=== PATIENT | female | born 1955 | race Caucasian/White ===

== ENCOUNTER 2020-09-10 18:00 | Inpatient (IN) | payer MEDICARE, OTHER ==
--- NOTE | 2020-09-10 19:00 | CR ---
PROCEDURE INFORMATION: Exam: XR Abdomen Exam date and time: 09/10/2020 6:30 PM Age: 65 years old Clinical indication: Other: Patient complains of constipation TECHNIQUE: Imaging protocol: XR of the abdomen. Views: 2 Views. Upright and supine views. COMPARISON: No relevant prior studies available. FINDINGS: Gastrointestinal tract: Normal. No bowel dilation. Right upper quadrant clips likely due to cholecystectomy. Intraperitoneal space: Normal. No free air. Bones/joints: Unremarkable for age. IMPRESSION: No acute findings.
--- NOTE | 2020-09-10 19:07 | EDM.PDOC ---
ED HPI GENERAL MEDICAL PROBLEM - General Chief Complaint: Gastrointestinal Problem Stated Complaint: CAN'T PASS BOWEL MOVEMENT, HAS DEMENTIA Time Seen by Provider: 09/10/20 19:10 Source of Information: Reports: Patient, Family (Daughter and ), RN, RN Notes Reviewed History Limitations: Reports: Other (Dementia and anxiety) - History of Present Illness INITIAL COMMENTS - FREE TEXT/NARRATIVE: Patient presents to the ED via personal vehicle with daughter for complaints of constipation. The patient's daughter reports the patient has significant anxiety, as well as dementia, at baseline and is a poor historian. The patient's daughter states her mother has been voicing complaints of a decrease in bowel movement frequency over the past several days. She has been given multiple laxatives, fleets enemas, and stool softeners in the past 48 hours. The patient's daughter reports she is experiencing bowel movements, per her father's report, but are concerned the frequency and amount of stool are not satisfactory. The patient denies fever, shaking chills, palpitations, abdominal pain, dysuria, hematuria, melena, or hematochezia. - Related Data Allergies Allergy/AdvReac Type Severity Reaction Status Date / Time wool Allergy itch/rash Verified 09/10/20 22:52 Home Meds: Home Meds Cyanocobalamin (Vitamin B12) [Vitamin B12] 1,000 mcg PO DAILY 09/10/20 [History] Donepezil HCl 10 mg PO DAILY 09/10/20 [History] Memantine HCl 5 mg PO DAILY 09/10/20 [History] amLODIPine [Norvasc] 2.5 mg PO DAILY 09/10/20 [History] hydrOXYzine pamoate [Hydroxyzine Pamoate] 25 mg PO BID PRN 09/10/20 [History] Past Medical History Cardiovascular History: Reports: Hypertension Psychiatric History: Reports: Anxiety, Dementia, Depression Social & Family History - Tobacco Use Tobacco Use Status *Q: Never Tobacco User Second Hand Smoke Exposure: Yes - Caffeine Use Caffeine Use: Reports: Soda - Recreational Drug Use Recreational Drug Use: No ED ROS GENERAL - Review of Systems Review Of Systems: Comprehensive ROS is negative, except as noted in HPI. ED EXAM, GI/ABD - Physical Exam Exam: See Below Exam Limited By: Other (Anxiety) General Appearance: Alert, Anxious, Mild Distress (Due to anxiety) Eyes: Bilateral: Normal Appearance, EOMI Throat/Mouth: Normal Inspection, Normal Voice, No Airway Compromise Head: Atraumatic, Normocephalic Neck: Normal Inspection, Supple, Non-Tender, Full Range of Motion Respiratory/Chest: No Respiratory Distress, Lungs Clear, Normal Breath Sounds, No Accessory Muscle Use, Chest Non-Tender Cardiovascular: Normal Peripheral Pulses, Regular Rate, Rhythm, No Edema, No Gallop, No JVD, No Murmur, No Rub GI/Abdominal Exam: Soft, Non-Tender, No Organomegaly, No Distention, No Abnormal Bruit, No Mass, Pelvis Stable, Abnormal Bowel Sounds (Hyperactive bowel sounds) (Female) Exam: Deferred Rectal (Female) Exam: Deferred Back Exam: Normal Inspection, Full Range of Motion. No: CVA Tenderness (L), CVA Tenderness (R), Muscle Spasm Extremities: Normal Inspection, Normal Range of Motion, Non-Tender, Normal Capillary Refill Neurological: Alert, Disoriented (To situation) Psychiatric: Anxious, Tearful Skin Exam: Warm, Dry, Intact, Normal Color, No Rash. No: Ecchymosis, Erythema, Jaundice, Mottled, Pallor, Petechiae Course - Vital Signs Last Recorded V/S: Last Vital Signs Temp 98.4 F 09/11/20 00:40 Pulse 58 L 09/11/20 00:40 Resp 16 09/11/20 00:40 BP 142/86 H 09/11/20 00:40 Pulse Ox 98 09/11/20 00:40 - Orders/Labs/Meds Labs: Laboratory Tests 09/10/20 09/10/20 09/10/20 Range/Units 19:22 19:22 19:22 WBC 6.6 (5.0-10.0) 10^3/uL RBC 5.48 H (4.2-5.4) 10^6/uL Hgb 16.4 H (12.0-16.0) g/dL Hct 44.9 (37.0-47.0) % MCV 81.9 (80-100) fL MCH 29.9 (27.0-34.0) pg MCHC 36.5 H (33.0-35.0) g/dL Plt Count 189 (150-450) 10^3/uL Neut % (Auto) 61.5 (42.2-75.2) % Lymph % (Auto) 26.5 (20.5-50.1) % Lyman % (Auto) 9.3 H (2-8) % Eos % (Auto) 2.4 (1.0-3.0) % Baso % (Auto) 0.3 (0.0-1.0) % Sodium 145 (136-145) mmol/L Potassium 2.4 L* (3.5-5.1) mmol/L Chloride 104 (98-107) mmol/L Carbon Dioxide 29 (21-32) mmol/L Anion Gap 14.4 H (7-13) mEq/L BUN 8 (7-18) mg/dL Creatinine 0.81 (0.55-1.02) mg/dL Est Cr Clr Drug Dosing 61.48 mL/min Estimated GFR (MDRD) > 60 BUN/Creatinine Ratio 9.9 (No establ ref range) Glucose 107 H (74-99) mg/dL Lactic Acid 1.4 (0.4-2.0) mmol/L Calcium 8.8 (8.5-10.1) mg/dL Magnesium 1.9 (1.8-2.4) mg/dL Total Bilirubin 1.5 H (0.2-1.0) mg/dL AST 30 (15-37) U/L ALT 37 (14-59) U/L Alkaline Phosphatase 53 (46-116) U/L Total Protein 6.9 (6.4-8.2) g/dL Albumin 3.7 (3.4-5.0) g/dL Globulin 3.2 Albumin/Globulin Ratio 1.2 - Radiology Interpretation Free Text/Narrative:: [facility] - [facility] Final Radiology Report Call: [phone] assistance Online chat: [email or web address] Name: CAROLYN RUBIN Age: 65Years F Date: 09/10/2020 SSN: -- : 1955 Study: CT ABDOMEN PELVIS W CONT Requesting Physician: Kassandra Pratt Images: 445 Addl Studies: Provided Clinical History: Abdominal pain; Constipation; r/o obstruction Contrast: With Contrast Medium: [id number] Contrast Amount: 75 mL Contrast Method: Intravenous (IV) Page 1 of 2 PROCEDURE INFORMATION: Exam: CT Abdomen And Pelvis With Contrast Exam date and time: 09/10/2020 8:24 PM Age: 65 years old Clinical indication: Constipation; Additional info: Abdominal pain; Constipation; R/O obstruction TECHNIQUE: Imaging protocol: Computed tomography of the abdomen and pelvis with contrast. Total images: 445 Radiation optimization: All CT scans at this facility use at least one of these dose optimization techniques: automated exposure control; mA and/or kV adjustment per patient size (includes targeted exams where dose is matched to clinical indication); or iterative reconstruction. Contrast material: [id number]; Contrast volume: 75 ml; Contrast route: INTRAVENOUS (IV); COMPARISON: CR Abdomen 2V AP Flat Upright 09/10/2020 6:30 PM FINDINGS: Liver: Hepatic steatosis. Gallbladder and bile ducts: Status post cholecystectomy. Pancreas: Normal. No ductal dilation. Spleen: Normal. No splenomegaly. Adrenal glands: Normal. No mass. Kidneys and ureters: Normal. No hydronephrosis. Stomach and bowel: Unremarkable. No obstruction. No mucosal thickening. Appendix: No evidence of appendicitis. Intraperitoneal space: Minimal central mesenteric haziness. Vasculature: Unremarkable. No abdominal aortic aneurysm. Lymph nodes: Unremarkable. No enlarged lymph nodes. Urinary bladder: Unremarkable as visualized. Reproductive: Unremarkable as visualized. Bones/joints: Degenerative changes lumbar spine. Soft tissues: Unremarkable. IMPRESSION: 1. No acute process. No evidence for bowel obstruction. 2. Hepatic steatosis. Thank you for allowing us to participate in the care of your patient. Dictated and Authenticated by: Basilio Viera MD 09/10/2020 10:00 PM Central Time ([place] & [place]) [facility] - [facility] Final Radiology Report Call: [phone] assistance Online chat: [email or web address] Name: CAROLYN RUBIN Age: 65Years F Date: 09/10/2020 SSN: -- : [id number] Study: CR ABDOMEN 2V AP FLAT UPRIGHT Requesting Physician: KRISTIAN PIERRE Images: 4 Addl Studies: Provided Clinical History: Patient complains of constipation Contrast: Contrast Medium: Contrast Amount: Contrast Method: CONFIDENTIALITY STATEMENT This report is intended only for use by the referring physician, and only in accordance with law. If you received this in error, call [phone]. Page 1 of 1 PROCEDURE INFORMATION: Exam: XR Abdomen Exam date and time: 09/10/2020 6:30 PM Age: 65 years old Clinical indication: Other: Patient complains of constipation TECHNIQUE: Imaging protocol: XR of the abdomen. Views: 2 Views. Upright and supine views. COMPARISON: No relevant prior studies available. FINDINGS: Gastrointestinal tract: Normal. No bowel dilation. Right upper quadrant clips likely due to cholecystectomy. Intraperitoneal space: Normal. No free air. Bones/joints: Unremarkable for age. IMPRESSION: No acute findings. Thank you for allowing us to participate in the care of your patient. Dictated and Authenticated by: Brendon Santos MD 09/10/2020 7:00 PM Central Time ([place] & [place]) - Re-Assessments/Exams Free Text/Narrative Re-Assessment/Exam: 09/10/20 Xray of abdomen unremarkable via [facility]Rad reading, however small bowel gas pattern in RUQ possibly indicative of obstructive process. Will obtain CT abdomen and pelvis to r/o obstruction. CBC unremarkable for acute processes; Hgb slightly high, likely d/t hypovolemic dehydration. CMP remarkable for potassium of 2.4 Will replace volume and potassium initially with NS + 20KCl and add riders. Patient is experiencing significant anxiety. Daughter reports she takes Hydroxyzine at home; will order Hydroxyzine 10mg PO. CT abdomen pelvis unremarkable for acute processes. Findings of examination, lab work, and imaging discussed with patient and family. Case discussed with Dr. Nieves who kindly agreed to accept patient for inpatient admission for hypokalemia. Departure - Departure Time of Disposition: 22:30 Disposition: Admitted As Inpatient 65 Condition: Good Clinical Impression: Hypokalemia due to excessive gastrointestinal loss of potassium - Discharge Information Sepsis Event Note (ED) - Evaluation Sepsis Screening Result: No Definite Risk - Focused Exam Vital Signs: Vital Signs Temp Pulse Resp BP Pulse Ox 09/10/20 18:30 99.4 F 76 18 125/79 97
[2020-09-10 19:47] LABS: ANION GAP 14.4 mEq/L (7-13); CHLORIDE,CL 104 mmol/L (98-107); SODIUM,NA 145 mmol/L (136-145)
[2020-09-10] MEDS ORDERED: Iopamidol 612 MG/ML 100 ML Bottle IVPUSH ONE (20:07)
[2020-09-10] MEDS ORDERED: hydrOXYzine HCl 10 MG Tab PO ONE (20:14)
[2020-09-10] MEDS ORDERED: NS + KCl 20mEq/L 1,000 ML IV SCH (20:15)
--- NOTE | 2020-09-10 22:00 | CT ---
PROCEDURE INFORMATION: Exam: CT Abdomen And Pelvis With Contrast Exam date and time: 09/10/2020 8:24 PM Age: 65 years old Clinical indication: Constipation; Additional info: Abdominal pain; Constipation; R/O obstruction TECHNIQUE: Imaging protocol: Computed tomography of the abdomen and pelvis with contrast. Total images: 445 Radiation optimization: All CT scans at this facility use at least one of these dose optimization techniques: automated exposure control; mA and/or kV adjustment per patient size (includes targeted exams where dose is matched to clinical indication); or iterative reconstruction. Contrast material: [id number]; Contrast volume: 75 ml; Contrast route: INTRAVENOUS (IV); COMPARISON: CR Abdomen 2V AP Flat Upright 09/10/2020 6:30 PM FINDINGS: Liver: Hepatic steatosis. Gallbladder and bile ducts: Status post cholecystectomy. Pancreas: Normal. No ductal dilation. Spleen: Normal. No splenomegaly. Adrenal glands: Normal. No mass. Kidneys and ureters: Normal. No hydronephrosis. Stomach and bowel: Unremarkable. No obstruction. No mucosal thickening. Appendix: No evidence of appendicitis. Intraperitoneal space: Minimal central mesenteric haziness. Vasculature: Unremarkable. No abdominal aortic aneurysm. Lymph nodes: Unremarkable. No enlarged lymph nodes. Urinary bladder: Unremarkable as visualized. Reproductive: Unremarkable as visualized. Bones/joints: Degenerative changes lumbar spine. Soft tissues: Unremarkable. IMPRESSION: 1. No acute process. No evidence for bowel obstruction. 2. Hepatic steatosis.
[2020-09-10 23:11] LABS: CORONAVIRUS COVID-19 NAA NEGATIVE (NEGATIVE)
[2020-09-10] MEDS ORDERED: Non-Formulary Medication 1 Each (Hydroxyzine Pamoate [Hydroxyzine Pamoate] 25 MG Capsule) PO PRN (23:53)
[2020-09-11] MEDS ORDERED: QUEtiapine 25 MG Tab PO ONE (00:02)
[2020-09-11] MEDS ORDERED: Potassium Chloride 10 MEQ Tab.ER PO ONE ×4 (00:04→16:10)
--- NOTE | 2020-09-11 00:14 | PCM.HP ---
H&P History of Present Illness - General Date of Service: 09/11/20 Admit Problem/Dx: Admission Diagnosis/Problem Admission Diagnosis/Problem Hypokalemia - History of Present Illness Initial Comments - Free Text/Narative: 65F w/ pmh early onset dementia, depression, anxiety, HT p/w constipation. The pt cannot report any ROS or hx due to memory impairment and extreme anxiety. All hx obtained from the [facility]. reports that for past several months the pt has been c/o difficulty w/ BMs. He's unsure what actually happens in the bathroom because she handles her own personal hygiene. He frequently hears her having difficulty however. He thinks she has a BM every 1-2 days. Pt admits to having hard, dry BMs. admits pt has been avoiding drinking much b/c dislike for taste of water and several other flavored drinks. She doesn't c/o any abdominal pain, nausea or vomiting. There has been no rectal bleeding. She never c/o any dysuria or difficulty voiding urine. notes poor appetite and perhaps ~20 lbs weight loss in past 6 mo. Pt has also been increasingly confused and forgetful in past months. Frequently walking around at night. She has not been agitated. is w/ her nearly 24/01. - Related Data Allergies/Adverse Reactions: Allergies Allergy/AdvReac Type Severity Reaction Status Date / Time wool Allergy itch/rash Verified 09/10/20 22:52 Home Medications: Home Meds Cyanocobalamin (Vitamin B12) [Vitamin B12] 1,000 mcg PO DAILY 09/10/20 [History] Donepezil HCl 10 mg PO DAILY 09/10/20 [History] Memantine HCl 5 mg PO DAILY 09/10/20 [History] amLODIPine [Norvasc] 2.5 mg PO DAILY 09/10/20 [History] hydrOXYzine pamoate [Hydroxyzine Pamoate] 25 mg PO BID PRN 09/10/20 [History] Past Medical History HEENT History: Reports: Hard of Hearing Cardiovascular History: Reports: Hypertension Genitourinary History: Reports: None 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: Psychiatric History: Reports: Anxiety, Dementia, Depression Endocrine/Metabolic History: Reports: Obesity/BMI 30+ Dermatologic History: Reports: Other (See Below) Other Dermatologic History: dry skin - Past Surgical History HEENT Surgical History: Reports: None Cardiovascular Surgical History: Reports: None Female Surgical History: Reports: Tubal Ligation Endocrine Surgical History: Reports: None Dermatological Surgical History: Reports: None Social & Family History - Family History Family Medical History: Unobtainable - Tobacco Use Tobacco Use Status *Q: Never Tobacco User Second Hand Smoke Exposure: No - Caffeine Use Caffeine Use: Reports: Soda - Recreational Drug Use Recreational Drug Use: No H&P Review of Systems - Review of Systems: Review Of Systems: Unable To Obtain (except as obtained from - see HPI) Reason Not Obtained: extreme anxiety and dementia Exam - Exam Exam: See Below - Vital Signs Vital Signs: Last Vital Signs Temp 97.8 F 09/10/20 22:44 Pulse 75 09/10/20 22:44 Resp 16 09/10/20 22:44 BP 148/75 H 09/10/20 22:44 Pulse Ox 99 09/10/20 22:44 Weight: 192 lb - Exam Quality Assessment: No: Supplemental Oxygen General: Alert, Cooperative HEENT: Conjunctiva Clear Neck: Supple Lungs: Clear to Auscultation, Normal Respiratory Effort Cardiovascular: Regular Rate, Regular Rhythm GI/Abdominal Exam: Normal Bowel Sounds, Soft, Non-Tender, No Distention (Female) Exam: Other (non tender bladder) Back Exam: Normal Inspection Extremities: No Pedal Edema Skin: Other (diffuse fungal rash under abdominal pannus) Neuro Extensive - Mental Status: Disorientation to Place, Disorientation to Time, Inattentive, Memory Loss-Remote Events, Memory Loss-Recent Events Psychiatric: Anxious (extreme) - Patient Data Lab Results Last 24 hrs: Laboratory Results - last 24 hr 09/10/20 09/10/20 09/10/20 Range/Units 19:22 19:22 19:22 WBC 6.6 (5.0-10.0) 10^3/uL RBC 5.48 H (4.2-5.4) 10^6/uL Hgb 16.4 H (12.0-16.0) g/dL Hct 44.9 (37.0-47.0) % MCV 81.9 (80-100) fL MCH 29.9 (27.0-34.0) pg MCHC 36.5 H (33.0-35.0) g/dL Plt Count 189 (150-450) 10^3/uL Neut % (Auto) 61.5 (42.2-75.2) % Lymph % (Auto) 26.5 (20.5-50.1) % Benson % (Auto) 9.3 H (2-8) % Eos % (Auto) 2.4 (1.0-3.0) % Baso % (Auto) 0.3 (0.0-1.0) % Sodium 145 (136-145) mmol/L Potassium 2.4 L* (3.5-5.1) mmol/L Chloride 104 (98-107) mmol/L Carbon Dioxide 29 (21-32) mmol/L Anion Gap 14.4 H (7-13) mEq/L BUN 8 (7-18) mg/dL Creatinine 0.81 (0.55-1.02) mg/dL Est Cr Clr Drug Dosing 61.48 mL/min Estimated GFR (MDRD) > 60 BUN/Creatinine Ratio 9.9 (No establ ref range) Glucose 107 H (74-99) mg/dL Lactic Acid 1.4 (0.4-2.0) mmol/L Calcium 8.8 (8.5-10.1) mg/dL Magnesium 1.9 (1.8-2.4) mg/dL Total Bilirubin 1.5 H (0.2-1.0) mg/dL AST 30 (15-37) U/L ALT 37 (14-59) U/L Alkaline Phosphatase 53 (46-116) U/L Total Protein 6.9 (6.4-8.2) g/dL Albumin 3.7 (3.4-5.0) g/dL Globulin 3.2 Albumin/Globulin Ratio 1.2 Influenza Type A RNA (NEGATIVE) Influenza Type B RNA (NEGATIVE) SARS-CoV-2 RNA (ASH) (NEGATIVE) 09/10/20 Range/Units 22:20 WBC (5.0-10.0) 10^3/uL RBC (4.2-5.4) 10^6/uL Hgb (12.0-16.0) g/dL Hct (37.0-47.0) % MCV (80-100) fL MCH (27.0-34.0) pg MCHC (33.0-35.0) g/dL Plt Count (150-450) 10^3/uL Neut % (Auto) (42.2-75.2) % Lymph % (Auto) (20.5-50.1) % Benson % (Auto) (2-8) % Eos % (Auto) (1.0-3.0) % Baso % (Auto) (0.0-1.0) % Sodium (136-145) mmol/L Potassium (3.5-5.1) mmol/L Chloride (98-107) mmol/L Carbon Dioxide (21-32) mmol/L Anion Gap (7-13) mEq/L BUN (7-18) mg/dL Creatinine (0.55-1.02) mg/dL Est Cr Clr Drug Dosing mL/min Estimated GFR (MDRD) BUN/Creatinine Ratio (No establ ref range) Glucose (74-99) mg/dL Lactic Acid (0.4-2.0) mmol/L Calcium (8.5-10.1) mg/dL Magnesium (1.8-2.4) mg/dL Total Bilirubin (0.2-1.0) mg/dL AST (15-37) U/L ALT (14-59) U/L Alkaline Phosphatase (46-116) U/L Total Protein (6.4-8.2) g/dL Albumin (3.4-5.0) g/dL Globulin Albumin/Globulin Ratio Influenza Type A RNA Negative (NEGATIVE) Influenza Type B RNA Negative (NEGATIVE) SARS-CoV-2 RNA (ASH) Negative (NEGATIVE) Result Diagrams: 09/10/20 19:22 09/10/20 19:22 Problem List Initiated/Reviewed/Updated: No Orders Last 24hrs: Active Orders 24 hr Category Date Time Status Admission Diagnosis [ADT] Stat ADT 09/10/20 22:07 Ordered Admission Status [Patient Status] [ADT] Routine ADT 09/10/20 22:07 Active Patient Status [ADT] Routine ADT 09/10/20 23:51 Ordered Oxygen Therapy [RC] PRN Care 09/10/20 23:51 Ordered Up With Assistance [RC] ASDIRECTED Care 09/10/20 23:51 Ordered VTE/DVT Education [RC] PER UNIT ROUTINE Care 09/10/20 23:51 Ordered Vital Signs [RC] Q4H Care 09/10/20 23:51 Ordered Regular Diet [DIET] Diet 09/10/20 Breakfast Ordered BASIC METABOLIC PANEL,BMP [CHEM] AM Lab 09/11/20 05:11 Ordered MAGNESIUM [CHEM] AM Lab 09/11/20 05:11 Ordered PHOSPHORUS [CHEM] AM Lab 09/11/20 05:11 Ordered Acetaminophen [TylenoL] Med 09/10/20 23:51 Active 650 mg PO Q4H PRN Cyanocobalamin (Vitamin B12) [Vitamin B12] Med 09/11/20 09:00 Active 1,000 mcg PO DAILY Donepezil [Aricept] Med 09/11/20 09:00 Active 10 mg PO DAILY Magnesium Sulfate 2 GM in Water @ 25 MLS/HR (50ml) Med 09/11/20 06:00 Ordered Magnesium Sulfate/Water [Magnesium Sulfate in Water 2 GM/50 ML] 2 gm in 50 ml IV ONETIME Memantine [Namenda] Med 09/11/20 09:00 Active 5 mg PO DAILY Potassium Chloride [KCl in Water 10 MEQ/100 ML] 10 meq Med 09/11/20 00:15 Ordered Premix Bag 1 bag IV Q1H Potassium Chloride [Klor-Con 10] Med 09/11/20 00:04 Once 40 meq PO ONETIME ONE Sodium Chloride 0.45% @ 100 MLS/HR(1,000ml) Med 09/11/20 00:15 Ordered Sodium Chloride 0.45% 1,000 ml IV ASDIRECTED amLODIPine [Norvasc] Med 09/11/20 09:00 Active 2.5 mg PO DAILY Resuscitation Status Routine Resus Stat 09/10/20 23:51 Ordered Assessment/Plan Comment:: #constipation - appears to be due to dehydration - CT normal and w/o any retained stool or impaction - will start a bowel regimen on discharge #hypokalemia - will replete aggressively #dementia w/ behavioral problems and anxiety - per hydroxyzine has been completely ineffective - trial of seroquel tonight #clinical dehydration - evident by concentrated CBC - gentle hydration #HT - c/w amlodipine #severe hernandez infection under pannus - fluconazole x1 and topical nystatin PPX - plan for d/c in am - defer chemo ppx unless stays Full code
[2020-09-11] MEDS ORDERED: Sodium Chloride 0.45% 1,000 ML IV SCH (00:15)
[2020-09-11] MEDS: Potassium Chloride 10 MEQ in Premix Bag 1 BAG IV SCH ×6 (00:24→14:57)
[2020-09-11] MEDS: Nystatin Crm 15 GM Tube TOP SCH ×4 (00:32→17:03)
[2020-09-11] MEDS ORDERED: Magnesium Sulfate/Water 2 GM/50 ML BAG IV ONE ×2 (04:00→06:00)
[2020-09-11] MEDS: Acetaminophen 325 MG Tab PO PRN ×2 (07:33→14:27)
[2020-09-11 07:46] LABS: ANION GAP 12.5 mEq/L (7-13); CHLORIDE,CL 106 mmol/L (98-107); SODIUM,NA 144 mmol/L (136-145)
[2020-09-11] MEDS ORDERED: Donepezil 10 MG Tab PO SCH (09:00)
[2020-09-11] MEDS ORDERED: Cyanocobalamin (Vitamin B12) 1,000 MCG Tab PO SCH (09:00)
[2020-09-11] MEDS ORDERED: Memantine 10 MG Tab PO SCH (09:00)
[2020-09-11] MEDS ORDERED: Fluconazole 100 MG Tab PO ONE (09:00)
[2020-09-11] MEDS ORDERED: amLODIPine 5 MG Tab PO SCH (09:00)
[2020-09-11] MEDS ORDERED: Potassium Chloride 10 MEQ in Premix Bag 1 BAG IV SCH (14:45)
[2020-09-11 15:39] LABS: ANION GAP 13.1 mEq/L (7-13); CHLORIDE,CL 106 mmol/L (98-107); SODIUM,NA 143 mmol/L (136-145)
--- NOTE | 2020-09-11 18:53 | PCM.DCSUM1 ---
Discharge Summary - Hospital Course Free Text/Narrative:: 65F w/ pmh early onset dementia, depression, anxiety, HT p/w constipation. The pt cannot report any ROS or hx due to memory impairment and extreme anxiety. All hx obtained from the [facility]. reports that for past several months the pt has been c/o difficulty w/ BMs. He's unsure what actually happens in the bathroom because she handles her own personal hygiene. He frequently hears her having difficulty however. He thinks she has a BM every 1-2 days. Pt admits to having hard, dry BMs. admits pt has been avoiding drinking much b/c dislike for taste of water and several other flavored drinks. She doesn't c/o any abdominal pain, nausea or vomiting. There has been no rectal bleeding. She never c/o any dysuria or difficulty voiding urine. notes poor appetite and perhaps ~20 lbs weight loss in past 6 mo. Pt has also been increasingly confused and forgetful in past months. Frequently walking around at night. She has not been agitated. is w/ her nearly 24/01. Ultimately the pt was admitted due to incidental hypokalemia. Pt was admitted and her potassium repleted aggressively. She was fluid resuscitated. Home services were put in place by CM. She was arranged for appointments w/ outpatient psychiatrist and her PMD was updated. Diagnosis: Stroke: No - Discharge Data Discharge Date: 09/11/20 Discharge Disposition: Home, W Home Health Agency 06 Condition: Stable - Referral to Home Health Date of Face to Face Encounter: 09/11/20 Reason for Homebound Status: severe anxiety and dementia Primary Care Physician: PCP None Skilled Need: OT to evaluate home safety, monitor psychiatric condition, teaching w/ caregiver re coping w/ pts mental illness, monitoring of severe skin infection response to therapy, MANAGER PET for help w/ bathing given severe skin fungal infection - Discharge Plan *PRESCRIPTION DRUG MONITORING PROGRAM REVIEWED*: Not Applicable *COPY OF PRESCRIPTION DRUG MONITORING REPORT IN PATIENT CHANDRAKANT: Not Applicable Prescriptions/Med Rec: Nystatin [Nystatin Crm] 1 gm TOP QID #1 tube Potassium Chloride 20 meq PO DAILY #30 tablet.er Home Medications: Home Meds Cyanocobalamin (Vitamin B12) [Vitamin B12] 1,000 mcg PO DAILY 09/10/20 [History] Donepezil HCl 10 mg PO DAILY 09/10/20 [History] Memantine HCl 5 mg PO DAILY 09/10/20 [History] amLODIPine [Norvasc] 2.5 mg PO DAILY 09/10/20 [History] hydrOXYzine pamoate [Hydroxyzine Pamoate] 25 mg PO BID PRN 09/10/20 [History] Nystatin [Nystatin Crm] 1 gm TOP QID #1 tube 09/11/20 [Rx] Potassium Chloride 20 meq PO DAILY #30 tablet.er 09/11/20 [Rx] Patient Handouts: Potassium Chloride Extended-Release Capsules, Hypokalemia, Nystatin skin cream or ointment Referrals: Indira Lim MD [Physician] - - Discharge Summary/Plan Comment DC Time >30 min.: Yes (35 min) - General Info Date of Service: 09/11/20 - Patient Data Vitals - Most Recent: Last Vital Signs Temp 97.8 F 09/11/20 16:59 Pulse 67 09/11/20 16:59 Resp 20 09/11/20 16:59 BP 132/54 L 09/11/20 16:59 Pulse Ox 96 09/11/20 16:59 Weight - Most Recent: 192 lb I&O - Last 24 hours: Intake & Output 09/11/20 09/11/20 09/11/20 06:59 14:59 22:59 Intake Total 500 2346 Output Total 300 1150 Balance 200 1196 Lab Results - Last 24 hrs: Laboratory Results - last 24 hr 09/10/20 09/10/20 09/10/20 Range/Units 19:22 19:22 19:22 WBC 6.6 (5.0-10.0) 10^3/uL RBC 5.48 H (4.2-5.4) 10^6/uL Hgb 16.4 H (12.0-16.0) g/dL Hct 44.9 (37.0-47.0) % MCV 81.9 (80-100) fL MCH 29.9 (27.0-34.0) pg MCHC 36.5 H (33.0-35.0) g/dL Plt Count 189 (150-450) 10^3/uL Neut % (Auto) 61.5 (42.2-75.2) % Lymph % (Auto) 26.5 (20.5-50.1) % [place] % (Auto) 9.3 H (2-8) % Eos % (Auto) 2.4 (1.0-3.0) % Baso % (Auto) 0.3 (0.0-1.0) % Sodium 145 (136-145) mmol/L Potassium 2.4 L* (3.5-5.1) mmol/L Chloride 104 (98-107) mmol/L Carbon Dioxide 29 (21-32) mmol/L Anion Gap 14.4 H (7-13) mEq/L BUN 8 (7-18) mg/dL Creatinine 0.81 (0.55-1.02) mg/dL Est Cr Clr Drug Dosing 61.48 mL/min Estimated GFR (MDRD) > 60 BUN/Creatinine Ratio 9.9 (No establ ref range) Glucose 107 H (74-99) mg/dL Lactic Acid 1.4 (0.4-2.0) mmol/L Calcium 8.8 (8.5-10.1) mg/dL Phosphorus (2.6-4.7) mg/dL Magnesium 1.9 (1.8-2.4) mg/dL Total Bilirubin 1.5 H (0.2-1.0) mg/dL AST 30 (15-37) U/L ALT 37 (14-59) U/L Alkaline Phosphatase 53 (46-116) U/L Total Protein 6.9 (6.4-8.2) g/dL Albumin 3.7 (3.4-5.0) g/dL Globulin 3.2 Albumin/Globulin Ratio 1.2 Influenza Type A RNA (NEGATIVE) Influenza Type B RNA (NEGATIVE) SARS-CoV-2 RNA (ASH) (NEGATIVE) 09/10/20 09/11/20 09/11/20 Range/Units 22:20 07:20 15:12 WBC (5.0-10.0) 10^3/uL RBC (4.2-5.4) 10^6/uL Hgb (12.0-16.0) g/dL Hct (37.0-47.0) % MCV (80-100) fL MCH (27.0-34.0) pg MCHC (33.0-35.0) g/dL Plt Count (150-450) 10^3/uL Neut % (Auto) (42.2-75.2) % Lymph % (Auto) (20.5-50.1) % Yancey % (Auto) (2-8) % Eos % (Auto) (1.0-3.0) % Baso % (Auto) (0.0-1.0) % Sodium 144 143 (136-145) mmol/L Potassium 2.5 L 3.1 L (3.5-5.1) mmol/L Chloride 106 106 (98-107) mmol/L Carbon Dioxide 28 27 (21-32) mmol/L Anion Gap 12.5 13.1 H (7-13) mEq/L BUN 7 5 L (7-18) mg/dL Creatinine 0.62 0.72 (0.55-1.02) mg/dL Est Cr Clr Drug Dosing 80.32 69.16 mL/min Estimated GFR (MDRD) > 60 > 60 BUN/Creatinine Ratio (No establ ref range) Glucose 84 102 H (74-99) mg/dL Lactic Acid (0.4-2.0) mmol/L Calcium 8.0 L 8.4 L (8.5-10.1) mg/dL Phosphorus 3.0 (2.6-4.7) mg/dL Magnesium 2.5 H (1.8-2.4) mg/dL Total Bilirubin (0.2-1.0) mg/dL AST (15-37) U/L ALT (14-59) U/L Alkaline Phosphatase (46-116) U/L Total Protein (6.4-8.2) g/dL Albumin (3.4-5.0) g/dL Globulin Albumin/Globulin Ratio Influenza Type A RNA Negative (NEGATIVE) Influenza Type B RNA Negative (NEGATIVE) SARS-CoV-2 RNA (ASH) Negative (NEGATIVE) - Exam Quality Assessment: Denies: Supplemental Oxygen General: Reports: No Acute Distress HEENT: Reports: Pupils Equal, Pupils Reactive Neck: Reports: Supple Lungs: Reports: Clear to Auscultation, Normal Respiratory Effort Cardiovascular: Reports: Regular Rate, Regular Rhythm, No Murmurs GI/Abdominal Exam: Normal Bowel Sounds, Soft, Non-Tender, No Distention Back Exam: Reports: Normal Inspection Extremities: No Pedal Edema Skin: Reports: Other (severe candidiasis under abd pannus) Neurological: Reports: Normal Speech Psy/Mental Status: Reports: Anxious
[2020-09-11] MEDS ORDERED: hydrOXYzine HCl 10 MG Tab PO ONE (20:02)
== END 2020-09-11 17:38 | disposition home health service (06) | DRG 641 ==
LOC: DL.ED 18:00 → DL.MS 22:07
PROVIDERS: ADMIT Internal Medicine; ATTEND Internal Medicine
DX: E87.6 Hypokalemia (principal); F03.91 Unspecified dementia, unspecified severity, with behavioral disturbance; B37.89 Other sites of candidiasis; F32.9 Major depressive disorder, single episode, unspecified; F03.90 Unspecified dementia, unspecified severity, without behavioral disturbance, psychotic disturbance, mood disturbance, and anxiety; Z91.048 Other nonmedicinal substance allergy status; F41.9 Anxiety disorder, unspecified; I10 Essential (primary) hypertension; K59.00 Constipation, unspecified; H91.90 Unspecified hearing loss, unspecified ear; E86.0 Dehydration; Z20.822 Contact with and (suspected) exposure to COVID-19; Z91.09 Other allergy status, other than to drugs and biological substances; Z79.899 Other long term (current) drug therapy
CPT/HCPCS: 0240U; 36415; 74019; 74177; 80048; 80053; 83605; 83735; 84100; 85025; 96365; 99284-25; A9270-GY; J3475; J3480; J7030; Q9967

== ENCOUNTER 2020-11-09 13:32 | Emergency (ER) | payer MEDICARE, OTHER ==
[2020-11-09] MEDS ORDERED: Midazolam 1 MG/ML 2 ML SDV IVPUSH ONE (13:46)
--- NOTE | 2020-11-09 13:46 | EDM.PDOC ---
"ED HPI GENERAL MEDICAL PROBLEM - General Chief Complaint: Lower Extremity Injury/Pain Stated Complaint: BY AMBULANCE Time Seen by Provider: 11/09/20 13:46 Source of Information: Reports: Patient, Family (), Old Records, RN, RN Notes Reviewed History Limitations: Reports: Other (Advanced dementia) - History of Present Illness INITIAL COMMENTS - FREE TEXT/NARRATIVE: Pt arrives to ER from home by [facility] with c/o left hip pain sustained just STABBER when pt fell off a rubber ball seat. Pt's states she fell onto her left hip, and has been moaning in pain with attempted ROM or attempted wt bearing. Pt has advance dementia and gives very little history other than to indicate that her left hip is painful. The wall was witnessed. Denies head injury, LOC, or neck pain. Onset: Today, Sudden Duration: Constant Location: Reports: Lower Extremity, Left Quality: Reports: Ache Severity: Severe Improves with: Reports: Immobilization, Rest Worsens with: Reports: Movement Context: Reports: Other (Fall) Associated Symptoms: Reports: No Other Symptoms Left Leg Pain Score (Numeric/FACES): 10 - Related Data Allergies Allergy/AdvReac Type Severity Reaction Status Date / Time wool Allergy itch/rash Verified 11/09/20 14:31 Home Meds: Home Meds Cyanocobalamin (Vitamin B12) [Vitamin B12] 1,000 mcg PO DAILY 09/10/20 [History] Donepezil HCl 10 mg PO DAILY 09/10/20 [History] Memantine HCl 5 mg PO DAILY 09/10/20 [History] amLODIPine [Norvasc] 2.5 mg PO DAILY 09/10/20 [History] Potassium Chloride 20 meq PO DAILY #30 tablet.er 09/11/20 [Rx] traZODone 25 mg PO DAILY 11/09/20 [History] Past Medical History HEENT History: Reports: Hard of Hearing Cardiovascular History: Reports: Hypertension Genitourinary History: Reports: None 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: Psychiatric History: Reports: Anxiety, Dementia, Depression Endocrine/Metabolic History: Reports: Obesity/BMI 30+ Dermatologic History: Reports: Other (See Below) Other Dermatologic History: dry skin - Past Surgical History HEENT Surgical History: Reports: None Cardiovascular Surgical History: Reports: None Female Surgical History: Reports: Tubal Ligation Endocrine Surgical History: Reports: None Dermatological Surgical History: Reports: None Social & Family History - Family History Family Medical History: Unobtainable - Caffeine Use Caffeine Use: Reports: Soda - Living Situation & Occupation Living situation: Reports: , with Spouse Occupation: Retired ED ROS GENERAL - Review of Systems Review Of Systems: Comprehensive ROS is negative, except as noted in HPI. ED EXAM, GENERAL - Physical Exam Exam: See Below Exam Limited By: Other (Advanced dementia) General Appearance: Alert, Anxious Eye Exam: Bilateral Eye: Normal Inspection Ears: Hearing Grossly Normal Nose: Normal Inspection, Normal Mucosa, No Blood Throat/Mouth: Normal Lips, Normal Voice, No Airway Compromise Head: Atraumatic, Normocephalic Neck: Normal Inspection, Non-Tender, Full Range of Motion Respiratory/Chest: No Respiratory Distress, Lungs Clear, No Accessory Muscle Use, Chest Non-Tender, Decreased Breath Sounds Cardiovascular: Normal Peripheral Pulses, Regular Rate, Rhythm GI/Abdominal: Normal Bowel Sounds, Soft, Non-Tender (Female) Exam: Deferred Rectal (Female) Exam: Deferred Back Exam: No: Vertebral Tenderness Extremities: Normal Capillary Refill, Leg Pain (Left hip region), Limited Range of Motion (Left hip). No: Joint Swelling, Arm Pain Neurological: Alert, No Motor/Sensory Deficits, Confused, Disoriented Psychiatric: Anxious Skin Exam: Warm, Dry, Intact, Normal Color, No Rash Course - Vital Signs Last Recorded V/S: Last Vital Signs Temp 98.5 F 11/09/20 14:00 Pulse 79 11/09/20 14:00 Resp 16 11/09/20 14:00 BP 113/88 11/09/20 14:00 Pulse Ox 100 11/09/20 14:00 - Orders/Labs/Meds Labs: Laboratory Tests 11/09/20 11/09/20 Range/Units 14:03 14:03 WBC 6.4 (5.0-10.0) 10^3/uL RBC 5.03 (4.2-5.4) 10^6/uL Hgb 15.0 (12.0-16.0) g/dL Hct 42.8 (37.0-47.0) % MCV 85.1 D (80-100) fL MCH 29.8 (27.0-34.0) pg MCHC 35.0 (33.0-35.0) g/dL Plt Count 73 L D (150-450) 10^3/uL Neut % (Auto) 57.5 (42.2-75.2) % Lymph % (Auto) 31.2 (20.5-50.1) % [place] % (Auto) 9.7 H (2-8) % Eos % (Auto) 1.1 (1.0-3.0) % Baso % (Auto) 0.5 (0.0-1.0) % Sodium 144 (136-145) mmol/L Potassium 3.7 (3.5-5.1) mmol/L Chloride 103 (98-107) mmol/L Carbon Dioxide 26 (21-32) mmol/L Anion Gap 18.7 H (7-13) mEq/L BUN 0 L (7-18) mg/dL Creatinine 0.61 (0.55-1.02) mg/dL Est Cr Clr Drug Dosing TNP Estimated GFR (MDRD) > 60 BUN/Creatinine Ratio 0.0 (No establ ref range) Glucose 85 (70-99) mg/dL Calcium 9.2 (8.5-10.1) mg/dL Total Bilirubin 1.9 H (0.2-1.0) mg/dL AST 53 H (15-37) U/L ALT 51 (14-59) U/L Alkaline Phosphatase 41 L (46-116) U/L Total Protein 6.2 L (6.4-8.2) g/dL Albumin 3.7 (3.4-5.0) g/dL Globulin 2.5 Albumin/Globulin Ratio 1.48 Meds: Medications Discontinued Medications Generic Name Dose Route Start Last Admin Trade Name Desi PRN Reason Stop Dose Admin Midazolam HCl 2 mg 11/09/20 13:46 11/09/20 14:00 Midazolam 1 Mg/Ml 2 Ml Sdv IVPUSH 11/09/20 13:47 2 mg ONETIME ONE Administration - Radiology Interpretation Free Text/Narrative:: [facility] Final Radiology Report Call: [phone] assistance Online chat: [email or web address] Name: CAROLYN RUBIN Age: 65Years F Date: 11/09/2020 SSN: -- : [id number] Study: CT PELVIS WO CONT Requesting Physician: KRISTIAN PIERRE Images: [id number] Addl Studies: Provided Clinical History: Ground level fall, L hip bony pelvis pain Contrast: Without Contrast Medium: Contrast Amount: Contrast Method: Page 1 of 2 PROCEDURE INFORMATION: Exam: CT Pelvis Without Contrast; Skeletal Exam date and time: 11/09/2020 2:15 PM Age: 65 years old Clinical indication: Other: HX advanced dementia; Additional info: Ground level fall, L hip bony pelvis pain TECHNIQUE: Imaging protocol: Computed tomography images of the pelvis without contrast. Exam focused on the skeletal structures. Radiation optimization: All CT scans at this facility use at least one of these dose optimization techniques: automated exposure control; mA and/or kV adjustment per patient size (includes targeted exams where dose is matched to clinical indication); or iterative reconstruction. COMPARISON: No relevant prior studies available. FINDINGS: Bones/joints: Degenerative changes of both hips. There is no evidence of acute fracture. There is no evidence of joint malalignment or dislocation. Soft tissues: There are no soft tissue masses or fluid collections. IMPRESSION: 1. Degenerative changes of both hips. 2. No evidence of acute fracture. 3. No evidence of acute dislocation. Thank you for allowing us to participate in the care of your patient. Dictated and Authenticated by: Polo Horton DO BERG, KAREN | Final Radiology Report CONFIDENTIALITY STATEMENT This report is intended only for use by the referring physician, and only in accordance with law. If you received this in error, call [phone]. Page 2 of 2 11/09/2020 2:36 PM Central Time ([place] & [place]) - Re-Assessments/Exams Free Text/Narrative Re-Assessment/Exam: 11/09/20 15:09 On reassessment pt able to stand and ambulate similar to baseline per . Departure - Departure Time of Disposition: 15:09 Disposition: Home, Self-Care 01 Condition: Good Clinical Impression: Contusion of left hip Qualifiers: Encounter type: initial encounter Qualified Code(s): S70.02XA - Contusion of left hip, initial encounter Fall as cause of accidental injury at home as place of occurrence Qualifiers: Encounter type: initial encounter Qualified Code(s): W19.XXXA - Unspecified fall, initial encounter; Y92.009 - Unspecified place in unspecified non- institutional (private) residence as the place of occurrence of the external cause - Discharge Information *PRESCRIPTION DRUG MONITORING PROGRAM REVIEWED*: Not Applicable *COPY OF PRESCRIPTION DRUG MONITORING REPORT IN PATIENT CHANDRAKANT: Not Applicable Instructions: Contusion, [id number], Hip Pain Forms: ED Department Discharge Additional Instructions: Activity as tolerated. Tylenol or Ibuprofen as needed for pain (follow directions on label for dosing and precautions). Follow up in clinic for recheck if not improving as expected in one week. Sepsis Event Note (ED) - Focused Exam Vital Signs: Vital Signs Temp Pulse Resp BP Pulse Ox 11/09/20 14:00 98.5 F 79 16 113/88 100"
--- NOTE | 2020-11-09 14:37 | CT ---
PROCEDURE INFORMATION: Exam: CT Pelvis Without Contrast; Skeletal Exam date and time: 11/09/2020 2:15 PM Age: 65 years old Clinical indication: Other: HX advanced dementia; Additional info: Ground level fall, L hip bony pelvis pain TECHNIQUE: Imaging protocol: Computed tomography images of the pelvis without contrast. Exam focused on the skeletal structures. Radiation optimization: All CT scans at this facility use at least one of these dose optimization techniques: automated exposure control; mA and/or kV adjustment per patient size (includes targeted exams where dose is matched to clinical indication); or iterative reconstruction. COMPARISON: No relevant prior studies available. FINDINGS: Bones/joints: Degenerative changes of both hips. There is no evidence of acute fracture. There is no evidence of joint malalignment or dislocation. Soft tissues: There are no soft tissue masses or fluid collections. IMPRESSION: 1. Degenerative changes of both hips. 2. No evidence of acute fracture. 3. No evidence of acute dislocation.
[2020-11-09 14:43] LABS: ANION GAP 18.7 mEq/L (7-13); CHLORIDE,CL 103 mmol/L (98-107); SODIUM,NA 144 mmol/L (136-145)
== END 2020-11-09 15:33 | disposition home or self-care (01) ==
LOC: DL.ED 13:32
DX: S70.02XA Contusion of left hip, initial encounter (principal); I10 Essential (primary) hypertension; E66.9 Obesity, unspecified; Z68.30 Body mass index [BMI] 30.0-30.9, adult; Z91.048 Other nonmedicinal substance allergy status; W17.89XA Other fall from one level to another, initial encounter; Y92.009 Unspecified place in unspecified non-institutional (private) residence as the place of occurrence of the external cause
CPT/HCPCS: 36415; 72192; 80053; 85025; 96374; 99283; 99284-25; J2250